=== PATIENT | female | born 1970 | race Caucasian/White ===

== ENCOUNTER 2016-12-08 00:31 | Emergency (ER) | payer OTHER ==
[2016-12-08 02:23] LABS: BASOPHIL % 0.4 % (0-2); CALCIUM 8.6 mg/dL (8.5-10.1); CARBON DIOXIDE 24.7 mmol/L (21-32); CHLORIDE SERUM 102 mmol/L (98-107); CREATININE SERUM 0.6 mg/dL (0.6-1.0); GFR1 > 60 mL/min; GLUCOSE SERUM 114 mg/dL (74-106); PLATELET COUNT 322 x10^3mcL (130-400); POTASSIUM SERUM 3.7 mmol/L (3.5-5.1); SODIUM SERUM 138 mmol/L (136-145)
[2016-12-08 02:30] LABS: RED CELL DISTRIBUTION WIDTH 18.4 % (11.5-14.5)
[2016-12-08 03:30] VITALS: BP 145/95
== END 2016-12-08 03:30 | disposition home or self-care (01) ==
LOC: ED 00:31
PROVIDERS: Emergency Medicine
DX: M79.602 Pain in left arm (principal)
CPT/HCPCS: 36415

== ENCOUNTER 2019-03-10 22:46 | Emergency (ER) | payer OTHER ==
[~2019-03-10] VITALS: Ht 157.5 cm; Wt 80.3 kg
[2019-03-11 01:08] VITALS: BP 134/71
== END 2019-03-11 01:08 | disposition home or self-care (01) ==
LOC: ED 22:46
DX: G44.209 Tension-type headache, unspecified, not intractable (principal)
CPT/HCPCS: J0780; J1885